=== PATIENT | male | born 1940 | race American Indian/Alaskan Native ===

== ENCOUNTER 2016-08-19 09:26 | Emergency (ER) | payer MEDICARE ==
[2016-08-19 09:33] VITALS: BMI 34.9
[2016-08-19 09:36] VITALS: BP 122/60; TEMP 97.7
--- NOTE | 2016-08-19 10:48 | C.PDOC ---
History Of Present Illness 76-year-old male, presents to the emergency department with complaints of non- traumatic intermittent right-lower back pain x1 week. Pain is worse with movement and at night. Patient denies any back pain at this time. Denies numbness/weakness, bladder/bowel incontinence, saddle anaesthesia, or any other associated symptoms. No other complaints at this time. Time Seen by Provider: 08/19/16 09:39 Chief Complaint (Nursing): Back Pain History Per: Patient History/Exam Limitations: no limitations Onset/Duration Of Symptoms: Days Current Symptoms Are (Timing): Better Severity: Moderate Past Medical History Reviewed: Historical Data, Nursing Documentation, Vital Signs Vital Signs: Last Vital Signs Temp 97.7 F 08/19/16 09:33 Pulse 75 08/19/16 10:51 Resp 18 08/19/16 10:51 BP 122/60 08/19/16 09:33 Pulse Ox 99 08/19/16 12:10 - Medical History PMH: HTN, Hypercholesterolemia Surgical History: Appendectomy (1962) - [facility] Procedures CYSTOSCOPY NEC (08/26/13) DX ULTRASOUND NEC (08/26/13) LEFT HEART CARDIAC CATH (02/02/13) LT HEART ANGIOCARDIOGRAM (02/02/13) PERCUTAN NEEDLE BIOPSY OF PROSTATE (08/26/13) Family History: States: No Known Family Hx - Social History Hx Alcohol Use: No Hx Substance Use: No - Immunization History Hx Tetanus Toxoid Vaccination: No Hx Influenza Vaccination: Yes Hx Pneumococcal Vaccination: Yes Review Of Systems Constitutional: Negative for: Fever Gastrointestinal: Negative for: Nausea, Vomiting, Diarrhea Genitourinary: Negative for: Dysuria, Frequency, Incontinence Musculoskeletal: Positive for: Back Pain Skin: Negative for: Rash Neurological: Negative for: Weakness, Numbness Physical Exam - Physical Exam Appears: Non-toxic, No Acute Distress Skin: Warm, Dry, No Rash Head: Atraumatic, Normacephalic Eye(s): bilateral: Normal Inspection Oral Mucosa: Moist Neck: Normal ROM Cardiovascular: Rhythm Regular, No Friction Rub, No Murmur Respiratory: Normal Breath Sounds, No Accessory Muscle Use, No Wheezing Gastrointestinal/Abdominal: Soft, No Tenderness Back: No CVA Tenderness, No Vertebral Tenderness, No Muscle Spasm, No Paraspinal Tenderness Extremity: Normal ROM Neurological/Psych: Oriented x3, Normal Cranial Nerves, Normal Motor, Normal Sensation Gait: Steady ED Course And Treatment O2 Sat by Pulse Oximetry: 99 (on RA) Pulse Ox Interpretation: Normal Medical Decision Making Medical Decision Making: Plan: * Sumanth Patient will be discharged for outpatient f/u with PMD. Disposition - Disposition Referrals: [facility] [Outside] Disposition: HOME/ ROUTINE Disposition Time: 10:46 Condition: GOOD Additional Instructions: Return if worsened. Prescriptions: Cyclobenzaprine [Flexeril] 5 mg PO TID #21 tab Naproxen [Naprosyn] 500 mg PO BID #20 tab Instructions: Acute Low Back Pain (ED) - Clinical Impression Clinical Impression: Low back pain - PA / PRODUCE SORTER / Resident Statement MD/DO has reviewed & agrees with the documentation as recorded. - Scribe Statement The provider has reviewed the documentation as recorded by the Scribe (Nelson Mcmillan) All medical record entries made by the Scribe were at my direction and personally dictated by me. I have reviewed the chart and agree that the record accurately reflects my personal performance of the history, physical exam, medical decision making, and the department course for this patient. I have also personally directed, reviewed, and agree with the discharge instructions and disposition.
[2016-08-19 10:51] VITALS: PULSE 75; RESP 18
[2016-08-19 12:03] VITALS: O2SAT 99
== END 2016-08-19 10:52 | disposition home or self-care (01) ==
LOC: C.ER 09:26
DX: M54.5 Low back pain (principal)

== ENCOUNTER 2016-09-06 08:37 | Emergency (ER) | payer MEDICARE ==
[2016-09-06 08:37] VITALS: BMI 34.9
--- NOTE | 2016-09-06 09:02 | C.PDOC ---
History Of Present Illness 76 yo male w/PMHx of prostate CA, come in for evaluation of Right sided mid/ lower back pain for past 2 weeks. Pt reports, pain is constant, localized, non- radiating and worsen with movement. Pt admits, was seen here in ED and received Rx: Flexeril, Naproxyn without improvement. Pt admits, had imaging last months, refused offered imaging of his back at present time. OTherwise, pt denies fever , chills, CP, SOB, dyspnea, diaphoresis, palpitation, abd. pain, N/V, UTI sx, hematuria, denies any other active complaints. Ambulate to Ed for evaluation w/ assistance of cane, baseline gait. Time Seen by Provider: 09/06/16 08:44 Chief Complaint (Nursing): Back Pain History Per: Patient History/Exam Limitations: no limitations Onset/Duration Of Symptoms: Persistent (2 weeks) Current Symptoms Are (Timing): Still Present Past Medical History Reviewed: Historical Data, Nursing Documentation, Vital Signs Vital Signs: Last Vital Signs Temp 98.1 F 09/06/16 08:41 Pulse 93 H 09/06/16 08:41 Resp 20 09/06/16 08:41 BP 167/83 H 09/06/16 08:41 Pulse Ox 98 09/06/16 10:04 - Medical History PMH: HTN, Hypercholesterolemia Surgical History: Appendectomy (1962) - [facility] Procedures CYSTOSCOPY NEC (08/26/13) DX ULTRASOUND NEC (08/26/13) LEFT HEART CARDIAC CATH (02/02/13) LT HEART ANGIOCARDIOGRAM (02/02/13) PERCUTAN NEEDLE BIOPSY OF PROSTATE (08/26/13) Family History: States: No Known Family Hx - Social History Hx Alcohol Use: No Hx Substance Use: No - Immunization History Hx Tetanus Toxoid Vaccination: (unk) Hx Influenza Vaccination: Yes Hx Pneumococcal Vaccination: No Review Of Systems Except As Marked, All Systems Reviewed And Found Negative. Constitutional: Negative for: Fever, Chills Cardiovascular: Negative for: Chest Pain, Palpitations Respiratory: Negative for: Shortness of Breath Gastrointestinal: Negative for: Nausea, Vomiting, Abdominal Pain Genitourinary: Negative for: Hematuria Musculoskeletal: Positive for: Back Pain (Right sdied mid/lower back pain ) Physical Exam - Physical Exam Appears: Well, Non-toxic, No Acute Distress Skin: Normal Color, Warm, Dry, No Rash, No Ecchymosis Eye(s): bilateral: PERRL Throat: Normal Neck: Trachea Midline, No Midline Cervical Tenderness, No Paracervical Tenderness, No Step Off Deformity, Supple Cardiovascular: Rhythm Regular Respiratory: No Decreased Breath Sounds, No Accessory Muscle Use, No Stridor, No Wheezing Gastrointestinal/Abdominal: Soft, No Tenderness, No Distention, No Guarding Back: No CVA Tenderness, No Vertebral Tenderness, Paraspinal Tenderness ( tenderness T10-L1. No midline tenderness, no palpable deformity, no skin changes.) Extremity: No Pedal Edema Neurological/Psych: Oriented x3, Normal Speech, Normal Motor, Normal Sensation, Normal Reflexes ED Course And Treatment O2 Sat by Pulse Oximetry: 98 (RA ) Pulse Ox Interpretation: Normal Progress Note: On re-evaluation, pt is afebrile, hemodynamicaly stable. Non- toxic. Ambulatory in ED with baseline gait. Neurologicaly intact. Imaging review that performed 1 month ago. Pt has clinical findings c/w prostatte hx w/ metastasis to T-, and L-spine. Pt advised and ref. to F/u with PMD, PM in 2-3 days for re-evaluation. Return to ED if any worsening or new changes. Medical Decision Making Medical Decision Making: PLAN: * Percocet PO * Urinalysis PREVIOUS IMAGING: Accession No. : [id number] Patient Name / ID : GURU CORMIER / [id number] Exam Date : 07/15/2016 12:27:29 ( Approved ) Study Comment : Sex / Age : M / 76Y Creator : Jay Rueda MD Dictator : Jay Rueda MD [employer] Dispatcher : Headwaitress : Jay Rueda MD Approver2 : Report Date : 07/15/2016 15:45:34 My Comment : PROCEDURE: Whole Body Bone Scan kwaku HISTORY: PROSTATE CA IMPRESSION: Osseous metastatic disease primarily in the axial skeleton including thoracolumbar spine, pelvis. Additional benign and/or incidental findings described above. Accession No. : [id number] Patient Name / ID : GURU CORMIER / [id number] Exam Date : 08/01/2016 17:04:25 ( Approved ) Study Comment : Sex / Age : M / 76Y Creator : Lala Solitario Dictator : Lala Solitario [employer] Dispatcher : Headwaitress : Lala Solitario Approver2 : Report Date : 08/01/2016 18:26:55 My Comment : PROCEDURE: CT Chest, Abdomen and Pelvis without intravenous contrast HISTORY: METS history of prostate cancer. IMPRESSION: No evidence of lymphadenopathy in the abdomen and pelvis to suggest local and distant metastasis. No evidence of metastasis in the chest. 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 Diffuse sclerotic changes seen at T2 vertebral body and posterior element may represent advance/burned out Paget's disease or less likely osseous metastasis from the patient's prostate cancer. Disposition Counseled Patient/Family Regarding: Studies Performed, Diagnosis, Need For Followup, Rx Given - Disposition Referrals: Hawa Glasgow MD [Staff Provider] - Disposition: HOME/ ROUTINE Disposition Time: 10:02 Condition: STABLE Additional Instructions: Take medication as prescribed Follow up with PMD and Pain management in 2-3 days for re-evaluation. Return to ED if any worsening or new changes. Prescriptions: oxyCODONE/Acetaminophen [Percocet 5/325 mg Tab] 1 tab PO BID PRN #7 tab PRN Reason: Pain Instructions: Back Pain (ED), Bone Metastasis (ED) - Clinical Impression Clinical Impression: Thoracic back pain, Lumbar sprain, Primary prostate cancer with metastasis from prostate to other site - PA / PEST CONTROL TECHNICIAN / Resident Statement MD/DO has reviewed & agrees with the documentation as recorded. - Scribe Statement The provider has reviewed the documentation as recorded by the Scribmikey Coleman All medical record entries made by the Mundo were at my direction and personally dictated by me. I have reviewed the chart and agree that the record accurately reflects my personal performance of the history, physical exam, medical decision making, and the department course for this patient. I have also personally directed, reviewed, and agree with the discharge instructions and disposition.
[2016-09-06 09:10] VITALS: BP 167/83; O2SAT 98
[2016-09-06] MEDS ORDERED: Oxycodone/Acetaminophen 5/325 mg Tab PO STA (09:47)
[2016-09-06] MEDS ORDERED: Oxycodone/Acetaminophen 5/325 mg Tab ONE (09:56)
[2016-09-06 10:07] LABS: SQUAMOUS EPITHIAL < 1 /hpf (0-5); URINE BILIRUBIN NEGATIVE (NEGATIVE); URINE BLOOD NEGATIVE (NEGATIVE); URINE CLARITY Clear (Clear); URINE COLOR Yellow (YELLOW); URINE GLUCOSE (UA) NORMAL (Normal); URINE LEUKOCYTE ESTERASE NEG Leu/uL (Negative); URINE NITRATE NEGATIVE (NEGATIVE); URINE PROTEIN NEGATIVE (NEGATIVE); URINE UROBILINOGEN NORMAL mg/dL (0.2-1.0)
[2016-09-06 10:38] VITALS: PULSE 88; RESP 18; TEMP 98.3
== END 2016-09-06 10:37 | disposition home or self-care (01) ==
LOC: C.ER 08:37
DX: S33.5XXD Sprain of ligaments of lumbar spine, subsequent encounter (principal); X58.XXXD Exposure to other specified factors, subsequent encounter; M54.6 Pain in thoracic spine; C61 Malignant neoplasm of prostate; C79.89 Secondary malignant neoplasm of other specified sites